=== PATIENT | female | born 1980 | race Caucasian/White ===

== ENCOUNTER 2016-11-08 14:38 | Emergency (ER) | payer OTHER ==
--- NOTE | 2016-11-08 14:49 | ER Document Report ---
ED Medical Screen (RME) - General Stated Complaint: ARM INJURY Notes: This 36-year-old female who presented to the emergency room after falling on her left arm has mid tib-fib discomfort. I greeted and performed a rapid initial assessment of this patient. Comprehensive ED assessment and evaluation of the patient, analysis of test results and completion of the medical decision making process will be conducted by additional ED providers. TRAVEL OUTSIDE OF THE [place] IN LAST 30 DAYS: No - Related Data Allergies/Adverse Reactions: erythromycin base [Erythromycin Base] Allergy (Verified 07/06/15 12:51) hydrocodone [Hydrocodone] Allergy (Verified 07/06/15 12:51) hydroxyzine HCl [From Vistaril] Allergy (Verified 07/06/15 12:51) hydroxyzine pamoate [From Vistaril] Allergy (Verified 07/06/15 12:51) ketorolac tromethamine [From Toradol] Allergy (Verified 07/06/15 12:51) metoclopramide HCl [From Reglan] Allergy (Verified 07/06/15 12:51) morphine [Morphine] Allergy (Verified 07/06/15 12:51) prochlorperazine edisylate [From Compazine] Allergy (Verified 07/06/15 12:51) prochlorperazine maleate [From Compazine] Allergy (Verified 07/06/15 12:51) sumatriptan [From Imitrex] Allergy (Verified 07/06/15 12:51) sumatriptan succinate [From Imitrex] Allergy (Verified 07/06/15 12:51) tramadol [Tramadol] Allergy (Verified 07/06/15 12:51) Past Medical History Neurological Medical History: Reports: Hx Migraine, Hx Seizures Past Surgical History: Reports: Hx Appendectomy, Hx Cardiac Surgery - cardiac ablation for tachycardia, Hx Cholecystectomy, Hx Tonsillectomy - and adenoids - Immunizations Hx Diphtheria, Pertussis, Tetanus Vaccination: Yes
[2016-11-08] MEDS ORDERED: KETOROLAC TROMETHAMINE 60 MG/2 ML SDV IM ONE (15:54)
--- NOTE | 2016-11-08 15:57 | ER Document Report ---
HPI - HPI Patient complains to provider of: arm pain Pain Level: 4 Context: Patient is a 36-year-old female who presents emergency department after she slipped and landed on her left arm. Patient did not hit her head, no obvious deformities. Has had previous surgery on her right elbow for a radial head fracture. Pain is a 4 out of 5 in severity and better with rest worse with movement. - REPRODUCTIVE Reproductive: DENIES: : - DERM Skin Color: Normal Past Medical History - General Information source: Patient - Social History Smoking Status: Current Every Day Smoker Chew tobacco use (# tins/day): No Frequency of alcohol use: None Drug Abuse: None Family History: Reviewed & Not Pertinent Patient has suicidal ideation: No Patient has homicidal ideation: No Neurological Medical History: Reports: Hx Migraine, Hx Seizures Renal/ Medical History: Denies: Hx Peritoneal Dialysis Past Surgical History: Reports: Hx Appendectomy, Hx Cardiac Surgery - cardiac ablation for tachycardia, Hx Cholecystectomy, Hx Tonsillectomy - and adenoids - Immunizations Hx Diphtheria, Pertussis, Tetanus Vaccination: Yes Vertical Provider Document - CONSTITUTIONAL Agree With Documented VS: Yes Exam Limitations: No Limitations General Appearance: WD/WN, Mild Distress, Thin - INFECTION CONTROL TRAVEL OUTSIDE OF THE [place] IN LAST 30 DAYS: No - HEENT HEENT: Atraumatic, Normocephalic - RESPIRATORY O2 Sat by Pulse Oximetry: 100 - CARDIOVASCULAR Pulses: Normal: Radial Notes: Capillary refill less than 2 seconds in all upper extremity digits - MUSCULOSKELETAL/EXTREMETIES Musculoskeletal/Extremeties: MAEW, FROM - With guarding of the left wrist, Tender, No Edema, Eccymosis - Over the left distal forearm Notes: Patient with guarding of the left arm. Has full range of motion of the wrist no obvious deformities. Strength appendectomy fully appreciate given the patient is in pain. - NEURO Level of Consciousness: Awake, Alert, Appropriate Motor/Sensory: No Motor Deficit, No Sensory Deficit Course - Re-evaluation Re-evalutation: 11/08/16 16:00 No evidence of fracture dislocation on x-ray. No concern for vascular or neurologic damage to his arm. Patient encouraged to use ice and heat as tolerated and can take NSAIDs [id number] for her pain. Can follow-up with her as needed - Vital Signs Vital signs: Temp Pulse Resp BP Pulse Ox 97.8 F 79 18 113/77 100 11/08/16 14:46 11/08/16 14:46 11/08/16 14:46 11/08/16 14:46 11/08/16 14:46 Discharge - Discharge Clinical Impression: Arm pain Qualifiers: Laterality: right Qualified Code(s): M79.601 - Pain in right arm Condition: Good Disposition: HOME, SELF-CARE Instructions: Ice & Elevation ([facility]), Use of [id number] Ibuprofen ([facility]), Toradol Injection ([facility]) Forms: Smoking Cessation Education Referrals: NEENA CHOUDHARY MD [Primary Care Provider] - Follow up as needed
[2016-11-08 16:18] VITALS: BP 92/61
== END 2016-11-08 16:17 | disposition home or self-care (01) ==
LOC: ER 14:38
DX: M79.602 Pain in left arm (principal); W01.0XXA Fall on same level from slipping, tripping and stumbling without subsequent striking against object, initial encounter; F17.200 Nicotine dependence, unspecified, uncomplicated; Z90.49 Acquired absence of other specified parts of digestive tract
CPT/HCPCS: 99283; 96372; 73090; J1885